=== PATIENT | female | born 1990 | race Caucasian/White ===

== ENCOUNTER 2018-07-09 16:31 | Emergency (ER) | payer OTHER ==
[~2018-07-09] VITALS: Ht 165.1 cm; Wt 70.3 kg
[~2018-07-09 16:31] MED LIST: BACTRIM DS TAB1 EACH PO; FLEXERIL PO; IBUPROFEN 600600 M1 PO; NOHOMEMEDICATIONS
[2018-07-09] MEDS ORDERED: CYCLOBENZAPRINE5 MG PO (17:20)
[2018-07-09] MEDS ORDERED: BUTALB-APAP-CA1 EACH PO (17:20)
[2018-07-09 17:59] VITALS: BP 101/61
== END 2018-07-09 18:02 | disposition home or self-care (01) ==
LOC: ER 16:31
DX: S46.912A Strain of unspecified muscle, fascia and tendon at shoulder and upper arm level, left arm, initial encounter (principal); S09.90XA Unspecified injury of head, initial encounter; R51 Headache; Z85.41 Personal history of malignant neoplasm of cervix uteri; V89.2XXA Person injured in unspecified motor-vehicle accident, traffic, initial encounter; Y93.I9 Activity, other involving external motion; Y92.410 Unspecified street and highway as the place of occurrence of the external cause; Y99.8 Other external cause status